=== PATIENT | male | born 1980 | race Caucasian/White ===

== ENCOUNTER 2020-02-15 19:25 | Emergency (ER) | payer OTHER, SELFPAY ==
--- NOTE | ~2020-02-15 | XR_ITS ---
EXAMINATION: XR foot RT min 3V DATE: 02/15/2020 20:02 INDICATION: Right foot pain TECHNIQUE: Dorsoplantar, lateral, and 2 oblique views of the right foot were obtained. COMPARISON: None. FINDINGS: A lateral malleolus fracture is noted in the lesion described on the ankle radiographs. The re is no acute fracture, dislocation, or subluxation of the foot. The bones, joint spaces, and soft t issues of the foot are normal. IMPRESSION: 1. No acute osseous abnormality of the foot. Ankle fracture will be described separately. Reviewed, dictated and finalized at location A. IMPRESSION: 1. No acute osseous abnormality of the foot. Ankle fracture will be described s eparately.
--- NOTE | ~2020-02-15 | XR_ITS ---
EXAMINATION: XR ankle RT min 3V INDICATION: Right ankle pain, initial encounter TECHNIQUE: Four views of the right ankle are obtained. COMPARISON: None available FINDINGS: There is an acute, traumatic, closed, avulsion fracture of the lateral malleolus. There is diffuse soft tissue swelling of the ankle. The ankle mortise is intact. No additional acute osseous f indings are evident. IMPRESSION: 1. Acute avulsion injury of the lateral malleolus. Reviewed, dictated and finalized at location A.
--- NOTE | 2020-02-15 19:37 | ED.LOWEXIN ---
HPI - Extremity Injury (Lower) General Chief Complaint: Extremity Injury, Lower Stated Complaint: Right ankle injury Time Seen by Provider: 02/15/20 19:37 Source: patient, family and RN notes reviewed History of Present Illness HPI Narrative: Patient is a 39-year-old male who presents the urgent care with complaints of right ankle and foot pain/swelling. Patient states he was playing basketball last night and his jeans got caught under his foot, causing him to fall. Patient states he called the doctor and they requested that he wait to be seen to see if the swelling would go down . Patient states that the swelling is increased throughout the day as well as the pain. Patient states he is unable to bear weight on the foot. Denies of any other injuries. No other acute complaints. No acute distress noted. Patient read the plan of care. Related Data Home Medications Medication Instructions Recorded Confirmed cholecalciferol (vitamin D3) 1 mcg PO DAILY 02/15/20 02/15/20 [Vitamin D3] divalproex 250 mg PO DIRECTED 02/15/20 02/15/20 folic acid 1 mg PO DAILY 02/15/20 02/15/20 phenytoin sodium extended 200 mg PO BID 02/15/20 02/15/20 Allergies Allergy/AdvReac Type Severity Reaction Status Date / Time No Known Allergies Allergy Verified 02/15/20 19:48 Review of Systems Review of Systems: Narrative: CONSTITUTIONAL: Denies fever, chills, or sweats. EYES: Denies visual changes, redness, or discharge. ENT: Denies rhinorrhea, congestion, sore throat, or otalgia. CARDIOVASCULAR: Denies chest pain, palpitations, or edema. RESPIRATORY: Denies cough or dyspnea. GASTROINTESTINAL: Denies abdominal pain, nausea, vomiting, or diarrhea. GENITOURINARY: Denies dysuria or hematuria. SKIN: Denies rash or itching. MUSCULOSKELETAL: Reports of right ankle and foot pain and swelling NEUROLOGIC: Denies headache, numbness, or weakness. All other systems reviewed are negative, except as documented in HPI. PMFSH Comments At the time of my signature, I reviewed and agree with the nursing past medical, surgical, social, and family history. There is no relevant family history pertinent to the patient complaint. Exam Narrative: Exam Narrative: GENERAL: This is a well-nourished, well-developed patient, in no apparent distress. HEAD: normocephalic, atraumatic. EYES: PERRL. Sclera clear/white. Vision is grossly intact. EARS: External ears normal NOSE: External nose normal with no obvious nasal discharge THROAT: Mucous membranes moist NECK: Neck supple SKIN: warm, intact with no suspicious lesions or rash, good texture and turgor. NEURO: awake, alert, and oriented to person, place and time. There were no obvious focal neurologic abnormalities. EXTREMITIES: Moderate edema and ecchymosis noted to the lateral right malleolus with mild edema noted to the medial right malleolus with severe tenderness to the lateral aspect. Moderate edema noted into the lateral aspect of the right foot with moderate tenderness and ecchymosis. Range of motion not tested due to pain. Positive strong right pedal pulse with capillary refill less than 2 seconds. Course Vital Signs Vital signs: Vital Signs Temperature 99.9 F H 02/15/20 19:40 Pulse Rate 87 02/15/20 19:40 Respiratory Rate 19 02/15/20 19:40 Blood Pressure 106/69 02/15/20 19:40 Pulse Oximetry 98 02/15/20 19:40 Temperature 99.9 F H 02/15/20 19:40 Pulse Rate 87 02/15/20 19:40 Respiratory Rate 19 02/15/20 19:40 Blood Pressure 106/69 02/15/20 19:40 Pulse Oximetry 98 02/15/20 19:40 Reviewed Procedures Orthopedic Splinting/Casting Injury #1: Side: right OCL: short leg (posterior ) Pre-Procedure Neuro Vascular Exam: normal Post-Procedure Neuro Vascular Exam: normal Additional Comments: Posterior short leg OCL placed to the right lower extremity. Patient aware that he is not able to have any weightbearing on the temporary splint. Crutch use demonst
[2020-02-15 19:40] VITALS: BP 106/69; PULSE 87; RESP 19; TEMP 37.7; O2SAT 98
== END 2020-02-15 20:25 | disposition home or self-care (01) ==
PROVIDERS: Emergency Provider Nurse Practitioner Family
DX: S82.61XA Displaced fracture of lateral malleolus of right fibula, initial encounter for closed fracture (principal); W19.XXXA Unspecified fall, initial encounter
CPT/HCPCS: 29515; 73610; 73630; 99214; G0463